=== PATIENT | male | born 1965 | race Caucasian/White ===

== ENCOUNTER 2018-02-15 05:44 | Day surgery (SDC) | payer BC ==
[~2018-02-15] VITALS: Ht 170.2 cm; Wt 73.5 kg
--- NOTE | ~2018-02-15 | HP ---
PATIENT: CHARLES RAZA MEDICAL RECORD: [id number] ACCOUNT: [id number] LOCATION:[facility] : 65 ADMISSION DATE: 02/15/18 HISTORY AND PHYSICAL EXAMINATION PREOPERATIVE HISTORY AND PHYSICAL HISTORY OF PRESENT ILLNESS: Mr. Raza is a 52-year-old male with a history of smoking and a suspicious area on the edge of his epiglottis. He is being admitted for direct laryngoscopy and biopsies. PAST MEDICAL HISTORY: Includes hypertension and reflux. PAST SURGICAL HISTORY: Includes surgery of the pancreas in 2012, both knees, ganglion cysts in both wrists and right index finger. MEDICATIONS: His current medications include valsartan, lovastatin, Bystolic, trazodone, ranitidine. ALLERGIES: No known drug allergies. PHYSICAL EXAMINATION: GENERAL: He is healthy-appearing, mildly hoarse voice. FACE: Normal, symmetric, no lesions. EYES: Sclerae and conjunctivae are normal. EARS: Canals and TMs are normal. NOSE: No mass, polyps or drainage. ORAL CAVITY AND OROPHARYNX: Tongue was in midline. Pharynx was normal. NECK: No masses, no adenopathy, no thyromegaly. Cranial nerves are normal. Laryngoscopy reveals rough granular edge worse on the left side of the epiglottis. The rest of the supraglottic larynx looks normal. CHEST: Clear. CARDIOVASCULAR: Regular rate and rhythm, no murmur. EXTREMITIES: Normal. IMPRESSION: Sore throat and a suspicious epiglottis lesion. PLAN: Direct laryngoscopy and biopsy of epiglottis. TRANSINT:[id number] Voice Confirmation ID: [id number] DOCUMENT ID: [id number] LANDY SHULTZ MD at 1254 CC: [id number] DICTATION DATE: 02/14/18 1508 INSTRUMENT ASSEMBLER: 02/14/18 1618 [facility] 02/15/18 [id number] [place] [address]
--- NOTE | ~2018-02-15 | OP ---
PATIENT NAME: CHARLES SEVILLA MEDICAL RECORD: [id number] :65 LOCATION:[facility] ADMISSION DATE: SURGEON: JONAS CANTRELL MD DATE OF OPERATION: 02/15/2018 PREOPERATIVE DIAGNOSES: Laryngeal lesion and throat pain. POSTOPERATIVE DIAGNOSES: Laryngeal lesion and throat pain. PROCEDURE: Direct laryngoscopy and biopsy. SURGEON: Jonas Cantrell MD ANESTHESIA: General orotracheal. BLOOD LOSS: 1 cc. SPECIMENS: Multiple biopsies of the epiglottis. FINDINGS: Granular changes to the edge of the epiglottis, really along the edge from the right to the left side and a little bit on the medial surface of the AE fold on the left posterior side as well. The cords, false and true cords were normal. Subglottis, piriforms, vallecula, postcricoid area were all clear, just the epiglottis was involved. DESCRIPTION OF PROCEDURE: He was brought to the operating room and placed in supine position, sedated and intubated by anesthesia. The table was turned, head drape was applied. He was positioned for laryngoscopy. He was edentulous, but a plastic tooth guard was placed over the upper gums using a headlight and palpated the palate, tonsil fossae, the tongue, oral cavity, really could not find any abnormality. Using a Kleinsasser J. laryngoscope, both piriforms were clear. The postcricoid area and arytenoid were normal. The vallecula, base of tongue were normal. The true cords were normal. The false cords were normal. On the epiglottis, the petiole and laryngeal surface of the epiglottis was normal. There was a little bit of the medial area of AE fold posteriorly on the left side that was involved with a little bit of granular pale area and then there was a friable edge to the epiglottis, really extended along just the edge across the left side around the tip and to the right side about half way to the arytenoid as well. Could not say it was obviously dysplastic, but it was irregular and it was friable with a little bit of bleeding when scraped. Cup forceps were used to take biopsies along the edge of the epiglottis. These were sent for path. There was really not much bleeding, but Afrin pledget was placed in the area. The laryngoscope was removed. Plastic tooth guard was removed and the Afrin pledgets were removed before he was awakened and extubated. He was transported to the recovery in good condition. No complications. TRANSINT:[id number] Voice Confirmation ID: [id number] DOCUMENT ID: [id number] OPERATIVE REPORT [id number] CHARLES SEVILLA, JONAS GOYAL at 1254 CC: [id number] DICTATION DATE: 02/15/18 0943 CLINICAL SUPPORT MANAGER: 02/15/18 1213 [facility] 02/15/18 [id number] [place] [address]
[~2018-02-15 05:44] MED LIST: BYSTOLIC2.5 MG PO; DIOVAN80 MG PO; LOVASTATIN40 MG PO
[2018-02-15 06:09] LABS: HEMATOCRIT 44.9 % (42.0-54.0); HEMOGLOBIN 15.2 g/dL (13.5-17.5); MCH 30.3 pg (26.0-34.0); MCHC 33.9 g/dL (31.0-37.0); MCV 89.6 fL (80.0-100.0); MEAN PLATELET VOLUME 9.2 fL (7.4-10.4); RBC 5.01 10x6/uL (4.20-6.10); RDW 13.5 % (11.5-14.5); WBC 9.2 10x3/uL (4.8-10.8)
[2018-02-15] MEDS ORDERED: PRILOSEC2.5 MG PO (07:23)
[2018-02-15 07:32] VITALS: BP 108/63; Ht 170.2 cm; Wt 73.5 kg
== END 2018-02-15 11:35 | disposition home or self-care (01) ==
LOC: D.OPS 05:44
PROVIDERS: Anesthesiology
DX: R07.0 Pain in throat (principal); J38.7 Other diseases of larynx; Z01.812 Encounter for preprocedural laboratory examination; Z87.891 Personal history of nicotine dependence; I10 Essential (primary) hypertension; K21.9 Gastro-esophageal reflux disease without esophagitis; Z79.899 Other long term (current) drug therapy

== ENCOUNTER → 2018-05-14 15:25 | Outpatient (CLI) | payer BC ==
[2018-02-15 07:32] VITALS: BMI 25.4
[~2018-05-14 15:25] MED LIST changes: +PRILOSEC2.5 MG PO
== END | disposition home or self-care (01) ==
LOC: D.LAB 15:25
DX: R76.11 Nonspecific reaction to tuberculin skin test without active tuberculosis (principal)

== ENCOUNTER → 2018-06-05 12:26 | Outpatient (CLI) | payer BC ==
[2018-02-15 07:32] VITALS: BMI 25.4
[2018-06-05 14:21] LABS: BASOPHILS 0.2 % (0-2); EOSINOPHILS 0.8 % (0-7); HEMATOCRIT 46.3 % (42.0-54.0); HEMOGLOBIN 15.9 g/dL (13.5-17.5); IMMATURE GRANULOCYTES 0.5 % (0-5); LYMPHOCYTES 11.5 % (15-50); MCH 30.5 pg (26.0-34.0); MCHC 34.3 g/dL (31.0-37.0); MCV 88.7 fL (80.0-100.0); MONOCYTES 7.1 % (2-11); NEUTROPHILS 79.9 % (40-80); PLATELET COUNT 268 10x3/uL (130-400); RBC 5.22 10x6/uL (4.20-6.10); RDW 14.4 % (11.5-14.5); WBC 9.7 10x3/uL (4.8-10.8)
== END | disposition home or self-care (01) ==
LOC: D.RT 12:26
PROVIDERS: Internal Medicine Pulmonary Disease
DX: D86.0 Sarcoidosis of lung (principal)

== ENCOUNTER 2018-08-06 08:57 | Outpatient (CLI) | payer BC ==
[~2018-08-06] VITALS: Ht 170.2 cm; Wt 76.4 kg
[2018-08-06 09:24] LABS: BASOPHILS 0.2 % (0-2); EOSINOPHILS 1.1 % (0-7); HEMATOCRIT 46.6 % (42.0-54.0); HEMOGLOBIN 15.5 g/dL (13.5-17.5); IMMATURE GRANULOCYTES 2.4 % (0-5); LYMPHOCYTES 22.4 % (15-50); MCH 30.2 pg (26.0-34.0); MCHC 33.3 g/dL (31.0-37.0); MCV 90.8 fL (80.0-100.0); MEAN PLATELET VOLUME 8.5 fL (7.4-10.4); MONOCYTES 6.9 % (2-11); RBC 5.13 10x6/uL (4.20-6.10); RDW 14.6 % (11.5-14.5); WBC 13.9 10x3/uL (4.8-10.8)
[2018-08-06 09:33] LABS: APTT 27.6 SECONDS (22.8-39.4); INR 0.94 (0.85-1.17); PROTIME 12.1 SECONDS (11.6-15.0)
[2018-08-06] MEDS ORDERED: PREDNISONE20 MG PO (09:37)
[2018-08-06] MEDS ORDERED: DIFLUCAN100 MG PO (09:38)
[2018-08-06] MEDS ORDERED: ISONIAZID300 MG PO (09:39)
[2018-08-06 09:40] LABS: PLATELET COUNT 349 10x3/uL (130-400)
[2018-08-06] MEDS ORDERED: THERALITH XR T1 EACH PO (09:40)
[2018-08-06] MEDS ORDERED: RIFABUTIN PO (09:41)
[2018-08-06] MEDS ORDERED: PYRAZINAMIDE500 MG PO (09:42)
[2018-08-06] MEDS ORDERED: RIMACTANE300 MG PO (09:43)
[2018-08-06] MEDS ORDERED: MYAMBUTOL100 MG (09:44)
[2018-08-06 09:52] VITALS: BP 126/86; Ht 170.2 cm; Wt 76.4 kg
== END 2018-08-06 14:00 | disposition home or self-care (01) ==
LOC: D.OPS 08:57
PROVIDERS: Internal Medicine Pulmonary Disease
DX: D86.9 Sarcoidosis, unspecified (principal); J30.9 Allergic rhinitis, unspecified; F17.200 Nicotine dependence, unspecified, uncomplicated; K21.9 Gastro-esophageal reflux disease without esophagitis; J31.2 Chronic pharyngitis; R05 Cough; E78.00 Pure hypercholesterolemia, unspecified; I10 Essential (primary) hypertension; R56.9 Unspecified convulsions; Z01.812 Encounter for preprocedural laboratory examination

== ENCOUNTER 2018-09-02 05:37 | Day surgery (SDC) | payer BC ==
[~2018-09-02] VITALS: Ht 170.2 cm; Wt 77.3 kg
[~2018-09-02 05:37] MED LIST changes: +DIFLUCAN100 MG PO; +ISONIAZID300 MG PO; +MYAMBUTOL100 MG; +PREDNISONE20 MG PO; +PYRAZINAMIDE500 MG PO; +RIFABUTIN PO; +RIMACTANE300 MG PO; +THERALITH XR T1 EACH PO
[2018-09-02 05:56] LABS: BASOPHILS 0.3 % (0-2); EOSINOPHILS 2.2 % (0-7); HEMATOCRIT 44.9 % (42.0-54.0); HEMOGLOBIN 15.1 g/dL (13.5-17.5); IMMATURE GRANULOCYTES 0.9 % (0-5); LYMPHOCYTES 26.2 % (15-50); MCH 30.4 pg (26.0-34.0); MCHC 33.6 g/dL (31.0-37.0); MCV 90.3 fL (80.0-100.0); MEAN PLATELET VOLUME 8.6 fL (7.4-10.4); MONOCYTES 8.2 % (2-11); NEUTROPHILS 62.2 % (40-80); RBC 4.97 10x6/uL (4.20-6.10); RDW 14.9 % (11.5-14.5); WBC 9.6 10x3/uL (4.8-10.8)
[2018-09-02 06:00] LABS: PLATELET COUNT 219 10x3/uL (130-400)
[2018-09-02 06:11] LABS: CALC OSMOLALITY 280 mosm/kg (275-300); CALCIUM 9.2 mg/dL (8.5-10.1); CARBON DIOXIDE 24.7 mmol/L (21.0-32.0); CHLORIDE - SERUM 103 mmol/L (98-107); CREATININE - SERUM 0.8 mg/dL (0.6-1.3); GLUCOSE 120 mg/dL (74-106); POTASSIUM - SERUM 3.9 mmol/L (3.5-5.1); SODIUM 141 mmol/L (136-145); UREA NITROGEN 11 mg/dL (7-18); eGFR NON AFRICAN AMERICAN > 90 mL/min (90-120)
[2018-09-02] MEDS ORDERED: TOPROL XL50 MG PO (06:16)
[2018-09-02 06:26] VITALS: Ht 170.2 cm; Wt 77.3 kg
--- NOTE | 2018-09-02 15:08 | OP ---
PATIENT NAME: CHARLES SEVILLA MEDICAL RECORD: [id number] :65 LOCATION:[facility] ADMISSION DATE: SURGEON: RIANNA CROWE DO DATE OF OPERATION: 09/02/2018 PROCEDURE: EGD with biopsies. INDICATIONS FOR PROCEDURE: Dysphagia and hoarseness. SCOPE: Olympus video gastroscope. MEDICATIONS: Propofol IV per anesthesia. ESTIMATED BLOOD LOSS: Minimal. COMPLICATIONS: None. FINDINGS AND DESCRIPTION OF PROCEDURE: Informed consent was given. The patient was made comfortable with the above medication. After reaching an adequate level of sedation by slow IV push, the patient was placed on his left side. The endoscope was advanced under direct visualization through the mouth to the second portion of the duodenum with ease. In the oropharynx, it was noted that the epiglottis appeared grossly abnormal. It was edematous and inflamed. There was abnormal tissue involving the entire epiglottis and aryepiglottic folds. As the endoscope was advanced further down into the oropharynx, where the vocal cords could normally be visualized, the tissue was very edematous and no vocal cords could be seen. There were some further abnormalities down this area consistent with abnormal tissue appearance and congestion. The endoscope was advanced beyond the hypopharynx, into the esophagus. The upper and middle thirds of the esophagus appeared normal. The distal third of the esophagus revealed candidal esophagitis. At the GE junction, there was evidence of mild LA class A reflux-induced esophagitis. The endoscope was advanced beyond the GE junction into the stomach and retroflexed to view the cardia, where a small sliding hiatal hernia was present. There were no associated ulcers or erosions with this hernia. The fundus and body of the stomach appeared normal. The antrum and prepyloric regions appeared normal. Random cold forceps biopsies were taken to submit for histopathology and to rule out the presence of H. pylori. The endoscope was advanced beyond the pylorus into the duodenum where there was some mild erythema and granularity in the duodenal bulb, likely related to gastric acid secretions reaching the small intestine. The endoscope was advanced beyond the bulb into the second portion of the duodenum, which appeared normal. The endoscope was then withdrawn back into the esophagus and cold forceps biopsies were taken at the GE junction to submit for histopathology. The endoscope was then withdrawn from the patient. The patient tolerated the procedure well and there were no complications. IMPRESSIONS: 1. Abnormal epiglottis. Unknown if this is related to sarcoid or tuberculosis. No biopsies were taken on this endoscopy of this location. 2. Esophageal candidiasis. 3. Reflux esophagitis, grade A. PLAN AND RECOMMENDATIONS: 1. Discharge home when recovery parameters are met. 2. Follow up biopsy specimen results. OPERATIVE REPORT [id number] CHARLES SEVILLA 3. GERD diet and reflux precautions. 4. Maintain appointment with Dr. Cantrell for further evaluation if needed. 5. Continue current management of reflux including omeprazole 40 mg daily. 6. We will provide a prescription for nystatin oral suspension to take 5 mL by mouth 4 times daily times 10 days. 7. Follow up in GI clinic after completion of treatment for tuberculosis. TRANSINT:[id number] Voice Confirmation ID: [id number] DOCUMENT ID: [id number] RIANNA CROWE DO at 1508 CC: [id number] DICTATION DATE: 09/02/18 0816 ELEVATOR TENDER: 09/02/18 1016 [facility] 09/02/[address] [address]
== END 2018-09-02 08:55 | disposition home or self-care (01) ==
LOC: D.OPS 05:37
PROVIDERS: Anesthesiology
DX: B37.81 Candidal esophagitis (principal); K21.0 Gastro-esophageal reflux disease with esophagitis; K29.50 Unspecified chronic gastritis without bleeding; Z01.812 Encounter for preprocedural laboratory examination

== ENCOUNTER → 2018-09-30 09:44 | Outpatient (CLI) | payer BC ==
[2018-09-02 06:26] VITALS: BMI 26.7
[~2018-09-30 09:44] MED LIST changes: +TOPROL XL50 MG PO
== END | disposition home or self-care (01) ==
LOC: D.RAD 09:44
PROVIDERS: ATTEND Internal Medicine Infectious Disease
DX: A15.9 Respiratory tuberculosis unspecified (principal)

== ENCOUNTER 2018-10-02 06:11 | Day surgery (SDC) | payer BC ==
[~2018-10-02] VITALS: Ht 170.2 cm; Wt 74.5 kg
--- NOTE | ~2018-10-02 | OP ---
PATIENT NAME: CHARLES SEVILLA MEDICAL RECORD: [id number] :65 LOCATION:[facility] ADMISSION DATE: SURGEON: RIANNA CROWE DO DATE OF OPERATION: 10/02/2018 PROCEDURE: Colonoscopy with polypectomy. INDICATION FOR PROCEDURE: Screening colonoscopy with history of colon polyps and diverticulosis. The patient's last procedure was performed on 03/07/2017. At that time, the patient had multiple large polyps removed. SCOPE: Olympus video pediatric colonoscope. MEDICATIONS: Propofol 750 mg IV per anesthesia. WITHDRAWAL TIME: 29 minutes. ESTIMATED BLOOD LOSS: Minimal. COMPLICATIONS: None. FINDINGS: Informed consent was given. The patient was made comfortable with the above medication. After reaching an adequate level of sedation by slow IV push, the patient was placed on his left side. A digital rectal examination was performed and revealed some enlargement. The endoscope was advanced under direct visualization through the rectum to the cecum, confirmed by the presence of the appendiceal orifice and the ileocecal valve. The endoscope was slowly withdrawn and mucosa was carefully examined. The prep quality was poor to fair. An extensive amount of time was spent washing and clearing the stool for better visualization of the mucosa. There was evidence of moderate diverticulosis involving the entire colon. There were multiple polyps again seen on today's examination. One was located in the ascending colon. It was a benign-appearing sessile polyp which measured approximately 2-3 mm in diameter. It was removed using hot forceps. There was another polyp located in the descending colon, which was benign appearing, sessile, and measured approximately 3 mm in diameter. It was removed using a hot snare. In the sigmoid colon, there were 11 separate benign-appearing sessile polyps which ranged in size from 3 mm to 7 mm in diameter. They were all removed using a hot snare. Polyps were retrieved. The endoscope was withdrawn from the patient. The patient tolerated the procedure well and there were no complications. IMPRESSION: 1. Multiple polyps as described above, removed using a combination of hot forceps and hot snare. 2. Moderate diverticulosis of the entire colon. PLANS AND RECOMMENDATIONS: 1. Discharge home when recovery parameters are met. 2. Follow up biopsy specimen results. 3. High-fiber diet. 4. Continue current medications. 5. Recall colonoscopy in 2 years. TRANSINT:[id number] Voice Confirmation ID: [id number] DOCUMENT ID: [id number] OPERATIVE REPORT [id number] CHARLES SEVILLA NATHAN A DO CC: [id number] DICTATION DATE: 10/02/18919 COST RECOVERY TECHNICIAN: 10/02/18 1258 [facility] 10/02/18 [id number] [place] [address]
[2018-10-02 07:13] VITALS: BP 123/73; Ht 170.2 cm; Wt 74.5 kg
[2018-10-02 07:55] LABS: HEMATOCRIT 39.9 % (42.0-54.0); HEMOGLOBIN 13.7 g/dL (13.5-17.5); MCH 30.9 pg (26.0-34.0); MCHC 34.3 g/dL (31.0-37.0); MCV 90.1 fL (80.0-100.0); MEAN PLATELET VOLUME 8.5 fL (7.4-10.4); RBC 4.43 10x6/uL (4.20-6.10); WBC 10.5 10x3/uL (4.8-10.8)
--- NOTE | 2018-10-02 10:16 | NUR ---
PT WITHOUT COMPLAINTS.VSS. IV D/C'D WITH CANNULA INTACT. DISHCARGE INSTRUCTIONS GIVEN. VERBALIZED AN UNDERSTANDING. SPOKE WITH PT.
== END 2018-10-02 10:15 | disposition home or self-care (01) ==
LOC: D.OPS 06:11
PROVIDERS: Anesthesiology; ATTEND Internal Medicine Gastroenterology
DX: Z12.11 Encounter for screening for malignant neoplasm of colon (principal); D12.2 Benign neoplasm of ascending colon; D12.5 Benign neoplasm of sigmoid colon; K63.5 Polyp of colon; K57.30 Diverticulosis of large intestine without perforation or abscess without bleeding; Z01.812 Encounter for preprocedural laboratory examination; Z86.010 Personal history of colon polyps

== ENCOUNTER 2018-11-01 20:15 | Emergency (ER) | payer BC ==
[2018-11-01 20:25] VITALS: BMI 25.7
[2018-11-01] MEDS ORDERED: COZAAR50 MG PO (20:25)
[2018-11-01 21:39] LABS: BASOPHILS 0.4 % (0-2); EOSINOPHILS 2.1 % (0-7); HEMATOCRIT 40.8 % (42.0-54.0); HEMOGLOBIN 13.9 g/dL (13.5-17.5); IMMATURE GRANULOCYTES 1.2 % (0-5); LYMPHOCYTES 18.8 % (15-50); MCH 30.7 pg (26.0-34.0); MCHC 34.1 g/dL (31.0-37.0); MCV 90.1 fL (80.0-100.0); MEAN PLATELET VOLUME 8.5 fL (7.4-10.4); MONOCYTES 9.6 % (2-11); NEUTROPHILS 67.9 % (40-80); RBC 4.53 10x6/uL (4.20-6.10); RDW 14.1 % (11.5-14.5); WBC 8.5 10x3/uL (4.8-10.8)
[2018-11-01 21:40] LABS: PLATELET COUNT 242 10x3/uL (130-400)
[2018-11-01 21:54] LABS: ALBUMIN 3.7 g/dL (3.4-5.0); ALKALINE PHOSPHATASE 86 U/L (46-116); ALT (SGPT) 16 U/L (10-68); CALC OSMOLALITY 277 mosm/kg (275-300); CALCIUM 9.3 mg/dL (8.5-10.1); CARBON DIOXIDE 23.1 mmol/L (21.0-32.0); CHLORIDE - SERUM 104 mmol/L (98-107); CREATININE - SERUM 0.9 mg/dL (0.6-1.3); GLUCOSE 112 mg/dL (74-106); POTASSIUM - SERUM 3.8 mmol/L (3.5-5.1); PROTEIN - SERUM 7.9 g/dL (6.4-8.2); SODIUM 139 mmol/L (136-145); UREA NITROGEN 9 mg/dL (7-18); eGFR NON AFRICAN AMERICAN > 90 mL/min (90-120)
[2018-11-02 00:06] VITALS: BP 109/64
== END 2018-11-02 00:06 | disposition home or self-care (01) ==
LOC: D.ER 20:15
PROVIDERS: Emergency Medicine
DX: I95.2 Hypotension due to drugs (principal); R00.1 Bradycardia, unspecified; R55 Syncope and collapse

== ENCOUNTER → 2018-12-03 09:35 | Outpatient (CLI) | payer BC ==
[~2018-12-03 09:35] MED LIST changes: +COZAAR50 MG PO
== END | disposition home or self-care (01) ==
LOC: D.RAD 09:35
PROVIDERS: ATTEND Family Medicine
DX: A15.9 Respiratory tuberculosis unspecified (principal)

== ENCOUNTER → 2019-02-04 08:50 | Outpatient (CLI) | payer BC | END | disposition home or self-care (01) | LOC: D.RAD 08:50 | PROVIDERS: ATTEND Internal Medicine Infectious Disease | DX: A15.9 Respiratory tuberculosis unspecified (principal) ==

== ENCOUNTER → 2019-04-22 08:53 | Outpatient (CLI) | payer BC | END | disposition home or self-care (01) | LOC: D.RT 02-20 08:00 → D.RAD 08:53 | PROVIDERS: ATTEND Internal Medicine Infectious Disease | DX: A15.9 Respiratory tuberculosis unspecified (principal) ==

== ENCOUNTER 2019-11-25 06:54 | Emergency (ER) | payer BC ==
[~2019-11-25] VITALS: Ht 170.2 cm; Wt 77.3 kg
[2019-11-25 07:04] VITALS: Ht 170.2 cm; Wt 77.3 kg
[2019-11-25 07:17] LABS: BASOPHILS 0.3 % (0-2); EOSINOPHILS 1.5 % (0-7); HEMATOCRIT 47.5 % (42.0-54.0); HEMOGLOBIN 16.2 g/dL (13.5-17.5); IMMATURE GRANULOCYTES 0.6 % (0-5); LYMPHOCYTES 31.1 % (15-50); MCHC 34.1 g/dL (31.0-37.0); MEAN PLATELET VOLUME 9.1 fL (7.4-10.4); MONOCYTES 9.3 % (2-11); NEUTROPHILS 57.2 % (40-80); PLATELET COUNT 238 10x3/uL (130-400); RBC 5.22 10x6/uL (4.20-6.10); RDW 13.1 % (11.5-14.5); WBC 7.2 10x3/uL (4.8-10.8)
[2019-11-25 07:24] LABS: CALC OSMOLALITY 270 mosm/kg (275-300); CARBON DIOXIDE 24.1 mmol/L (21.0-32.0); CHLORIDE - SERUM 100 mmol/L (98-107); CREATININE - SERUM 0.9 mg/dL (0.6-1.3); GLUCOSE 122 mg/dL (74-106); POTASSIUM - SERUM 3.9 mmol/L (3.5-5.1); SODIUM 135 mmol/L (136-145); UREA NITROGEN 13 mg/dL (7-18); eGFR NON AFRICAN AMERICAN > 90 mL/min (90-120)
[2019-11-25 07:25] LABS: APTT 26.2 SECONDS (22.8-39.4); PROTIME 13.2 SECONDS (11.6-15.0)
[2019-11-25 07:41] LABS: ALBUMIN 4.3 g/dL (3.4-5.0); ALKALINE PHOSPHATASE 95 U/L (30-120); ALT (SGPT) 78 U/L (10-68); BILIRUBIN - TOTAL 0.92 mg/dL (0.2-1.3); CKMB 0.3 U/L (0.0-3.6); CREATINE KINASE 95 UL (21-232); MAGNESIUM - SERUM 2.2 mg/dL (1.8-2.4); PROTEIN - SERUM 8.1 g/dL (6.4-8.2)
[2019-11-25 07:42] LABS: TROPONIN-I < 0.017 ng/mL (0.000-0.060)
[2019-11-25 09:22] VITALS: BP 146/83
== END 2019-11-25 09:24 | disposition home or self-care (01) ==
LOC: D.ER 06:54
PROVIDERS: Family Medicine
DX: M54.2 Cervicalgia (principal); I10 Essential (primary) hypertension; R51 Headache; Z72.0 Tobacco use; R42 Dizziness and giddiness

== ENCOUNTER → 2019-11-27 10:15 | Outpatient (CLI) | payer BC ==
[2019-11-25 07:04] VITALS: BMI 26.7
--- NOTE | ~2019-11-27 | EC ---
PATIENT:CHARLES SEVILLA DATE OF SERVICE: 11/27/19 SEX: M MEDICAL RECORD: [id number] DATE OF : 65 LOCATION:[facility] AGE OF PATIENT: 54 ADMISSION DATE: 11/27/19 REFERRING PHYSICIAN: INTERPRETING PHYSICIAN: ANGELICA AGRAWAL MD ECHOCARDIOGRAM REPORT ECHO CHARGES 4 ECHO COMPLETE Date: 11/27/19 CLINICAL DIAGNOSIS: HEART MURMUR ECHOCARDIOGRAPHIC MEASUREMENTS (adult normal given) AC root (d.<3.7cm) 4.5 cm LV Septum d (<1.2 cm> 1.6 cm Valve Excursion 1.7 cm LV Septum (systole) 1.8 cm Left Atria (s.<4.0cm> 3.6 cm LVPW d(<1.2cm) 1.5 cm RV (d.<2.3cm) 4.0 cm LVPW (sytole) 1.7 cm LV diastole(<5.6CM) 4.4 cm MV E-F(>70mm/sec) cm LV systole 2.7 cm LVOT Diameter 1.8 cm MV exc.(>10mm) 1.6 cm Est.ejection fraction (50-75%) % DOPPLER: LVIT cm/sec A 71.0 cm/sec E 94.0 cm/sec LA cm/sec RVSP 22 mmHg LVOT 123 cm/sec AOP1/2T m/s Asc. Ao 144 cm/sec RVOT 66 cm/sec RA cm/sec PA 112 cm/sec AV Gradient Peak 8.29 mmHg AV Mean 4.10 mmHg AV Area 2.6 cm MV Gradient Peak 6.27 mmHg MV Mean 2.03 mmHg MV Area cm COMMENTS: Network Diagnostic Support Specialist: 2 MARY KAY MULLINS Merchandise Processor: 3 Dr. Ferguson TAPE# PACS Pericardial Effusion N DATE OF SERVICE: Adequate 2D, color flow imaging, spectral Doppler, and M-Mode. LVH is present. LV internal dimension is normal. Wall motion is normal. EF greater than or equal to 55%. Aortic valve is tricuspid. No evidence of stenosis by Doppler interrogation. Left atrium is normal at 3.6 cm. Mitral valve shows no prolapse. Trace MR. Right-sided chambers are grossly normal. Trace TR. ECHOCARDIOGRAM REPORT [id number] CHARLES SEVILLA TRANSINT:[id number] Voice Confirmation ID: [id number] DOCUMENT ID: [id number] ANGELICA AGRAWAL MD CC: [id number] DICTATION DATE: 11/27/19 1656 MANUFACTURING ELECTRICIAN: 11/27/[address] [facility] [address] [id number]
--- NOTE | ~2019-11-27 | ST ---
PATIENT:CHARLES SEVILLA MEDICAL RECORD: [id number] SEX: M LOCATION:[facility] ORDER #: ADMISSION DATE: 11/27/19 AGE OF PATIENT: 54 REFERRING PHYSICIAN: INTERPRETING PHYSICIAN: ANGELICA AGRAWAL MD DATE OF SERVICE: 11/27/2019 PROCEDURE: Treadmill stress test. Baseline ECG is normal. Exercised for 4 minutes 48 seconds on Moisés protocol. Maximum heart rate 124 beats per minute, greater than 95% max predicted. No ECG change of ischemia. No symptoms of ischemia. Mild hypertensive response to exercise. No arrhythmias noted. Poor exercise tolerance for age. TRANSINT:[id number] Voice Confirmation ID: [id number] DOCUMENT ID: [id number] ANGELICA AGRAWAL MD CC: [id number] DICTATION DATE: 11/28/19 111 HOUSEKEEPING DEPARTMENT WORKER: 11/28/192217 [facility] 11/27/19 [id number] [place] [address]
== END | disposition home or self-care (01) ==
LOC: D.HCCECHO 10:00
PROVIDERS: ATTEND Internal Medicine Interventional Cardiology
DX: R01.1 Cardiac murmur, unspecified (principal)

== ENCOUNTER → 2020-12-03 15:11 | Outpatient (CLI) | payer BC ==
[2019-11-25 07:04] VITALS: BMI 26.7
== END | disposition home or self-care (01) ==
LOC: D.MRI 15:11
PROVIDERS: ATTEND Nurse Practitioner Family
DX: M77.12 Lateral epicondylitis, left elbow (principal)